=== PATIENT | male | born 1935 | race Caucasian/White ===

== ENCOUNTER 2016-09-25 07:07 | Emergency (ER) | payer OTHER ==
[~2016-09-25] VITALS: Ht 180.3 cm; Wt 90.0 kg
[~2016-09-25 07:07] MED LIST: ASPIRIN325 MG PO; ATORVASTATIN CA40 MG PO; DONEPEZIL HCL23 MG PO; KEFLEX500 MG PO; METFORMIN HCL1000 MG PO; MONOPRIL20 MG PO
[2016-09-25] MEDS ORDERED: TYLENOL WITH C1 EACH PO (09:48)
[2016-09-25 11:44] VITALS: BP 138/76
[2016-10-03] MEDS ORDERED: TYLENOL WITH C1 EACH PO (09:02)
[2016-10-03] MEDS ORDERED: METFORMIN HCL500 MG PO (09:02)
[2016-10-03] MEDS ORDERED: MEMANTINE HCL5 MG PO (09:02)
[2016-10-03] MEDS ORDERED: PREDNISONE5 M1 PO (09:25)
== END 2016-09-25 11:45 | disposition home or self-care (01) ==
LOC: EME → EDBD 07:07 → EME 11:45
DX: S80.02XA Contusion of left knee, initial encounter (principal); W10.9XXA Fall (on) (from) unspecified stairs and steps, initial encounter; I10 Essential (primary) hypertension; E78.5 Hyperlipidemia, unspecified; E11.9 Type 2 diabetes mellitus without complications; Z79.82 Long term (current) use of aspirin
CPT/HCPCS: 73564; 99281; 99284; G8978 CL; G8979 CJ; G8987 GO CM; G8988 GO CH

== ENCOUNTER 2016-10-04 11:31 | Inpatient (IN) | payer OTHER ==
[~2016-10-04] VITALS: Ht 180.3 cm; Wt 87.5 kg
[~2016-10-04 11:31] MED LIST changes: +MEMANTINE HCL5 MG PO; +METFORMIN HCL500 MG PO; +PREDNISONE5 M1 PO; +TYLENOL WITH C1 EACH PO
[2016-10-04 12:46] LABS: POINT-OF-CARE METER ID UU14174212
[2016-10-04 12:52] VITALS: BP 126/73
[2016-10-04 16:07] LABS: POINT-OF-CARE METER ID UU13113675
[2016-10-04 18:03] VITALS: BP 146/76
[2016-10-04 19:41] VITALS: BP 149/79
[2016-10-05] VITALS (7 sets, daily range): BP systolic 106–144; BP diastolic 60–75
[2016-10-06 03:55] VITALS: BP 114/68
[2016-10-06 10:25] VITALS: BP 118/73
[2016-10-06 19:52] VITALS: BP 135/69
[2016-10-06 23:33] VITALS: BP 133/76
[2016-10-07 08:30] VITALS: BP 129/83
[2016-10-07 17:07] VITALS: BP 113/68
[2016-10-07 23:44] VITALS: BP 125/68
[2016-10-08 07:20] VITALS: BP 105/59
[2016-10-08 15:55] VITALS: BP 101/62
[2016-10-09 00:04] VITALS: BP 117/69
[2016-10-09 08:00] VITALS: BP 114/67
[2016-10-09] MEDS ORDERED: TYLENOL REGULA325 MG PO (12:48)
[2016-10-09] MEDS ORDERED: LOVENOX30 MG/0.3 SC (12:51)
[2016-10-09] MEDS ORDERED: ENDOCET 5-3251 EACH PO (12:51)
[2016-10-09 16:32] VITALS: BP 132/75
== END 2016-10-09 17:49 | DRG 502 ==
LOC: SDC 11:31 → 3EAST 15:45 → 2SOUTH 15:45 → 3EAST 17:39
PROVIDERS: Orthopaedic Surgery
PROC: 0LQM0ZZ Repair Left Upper Leg Tendon, Open Approach (ICD-10-PCS; principal; 2016-10-04)
DX: S76.112A Strain of left quadriceps muscle, fascia and tendon, initial encounter (principal); I10 Essential (primary) hypertension; E11.9 Type 2 diabetes mellitus without complications; F03.90 Unspecified dementia, unspecified severity, without behavioral disturbance, psychotic disturbance, mood disturbance, and anxiety; L30.9 Dermatitis, unspecified; Z75.1 Person awaiting admission to adequate facility elsewhere; W10.9XXA Fall (on) (from) unspecified stairs and steps, initial encounter; Y92.009 Unspecified place in unspecified non-institutional (private) residence as the place of occurrence of the external cause; Y99.9 Unspecified external cause status
CPT/HCPCS: 82948; 97530 GP; J0690; J1200; J1650; J2250; J2405; J3010; J7120; J7512